=== PATIENT | female | born 1935 | race Caucasian/White ===

== ENCOUNTER 2016-05-19 14:55 | Inpatient (IN) | payer OTHER ==
[~2016-05-19] VITALS: Ht 160 cm; Wt 70.0 kg
[~2016-05-19 14:55] MED LIST: ADVAIR 100/501 DISK IH; ASCORBIC ACID500 M3 PO; ASPIRIN81 M1 PO; BUMETANIDE0.5 M1 PO; CITRACAL + D C1 EACH PO; CLONIDINE HCL0.2 MG PO; COLACE100 MG PO; COMPAZINE10 MG PO; COUMADIN2.5 MG PO; COUMADIN4 MG PO; DIOVAN320 MG PO; FEOSOL325 MG PO; FOLIC ACID0.4 MG PO; FOLIC ACID0.8 MG PO; HYDROCHLOROTHIA25 MG PO; HYDROCODON-ACE1 EAC7 PO; ISOSORBIDE DINIT5 MG PO; LO-DOSE ASPIRIN81 M1 PO; METHOTREXATE2.5 MG PO; METOPROLOL SUCC50 MG PO; METOPROLOL TART50 MG PO; NITROQUICK0.4 MG SL; PERCOCET 5/31 TABLET PO; PREDNISONE10 MG PO; PREDNISONE20 MG PO; PROAIR HFA8.5 GM IH; ROBITUSSIN DM118 ML PO; SENNA-TIME S T1 EACH PO; SIMVASTATIN40 M1 PO; SIMVASTATIN40 MG PO; SINGULAIR10 MG PO; SODIUM CHLORIDE1 G1 PO; SPIRIVA1 INHALATI IH; SYMBICORT60 INHALAT IH; TYLENOL EXTRA500 MG PO; ULTRACET1 TABLET PO; VALTREX1000 MG PO; VALTURNA 300-31 EACH PO; VITAMIN B-6100 MG PO; VITAMIN B6100 MG PO; VITAMIN C1000 M3 PO; VITAMIN D3400 UNI2 PO; VITAMIN D400 UNIT PO; VITAMIN D50000 UNI1 PO
[2016-05-19 15:34] LABS: BICARBONATE 11.4 mEq/L (22-26); CARBOXY HGB 1.7 % (0-5); METHEMOGLOBIN 0.7 % (0-1.5); PCO2 43 mm Hg (35-45); PO2 353 mm Hg (80-100)
[2016-05-19 15:35] LABS: COMMENTS - BLOOD GASES C+; DEVICE VENT; FI02 100 %; MECHANICAL RATE 12 resp/min; MODE A/C; PEEP 5 CM/H20; SITE RB; TIDAL VOLUME 400 ML; TOTAL RESP RATE 20 resp/min; pH 7.03 (7.35-7.45)
[2016-05-19 15:40] LABS: HEMATOCRIT 41.7 % (36.0-46.0); MCH 33.3 PG (29.0-34.0); MCHC 34.5 G/DL (30.0-36.0); MCV 96.3 FL (83-99); MEAN PLAT.VOLUME 9.4 uM^3 (9.5-12.4); PLATELET COUNT 186 K/uL (156-360); RBC DIS.WIDTH-CV 12.9 % (11.8-14.6); RBC DIS.WIDTH-SD 43.8 % (39-53); RED BLOOD COUNT 4.33 M/uL (3.80-5.20); WHITE BLOOD COUNT 5.8 K/uL (4.1-10.2)
[2016-05-19 16:15] LABS: HEMATOLOGY COMMENT 1 SMEAR COMPATIBLE; PLAT.SUFFICIENCY ADEQUATE; USER ID SS
[2016-05-19 16:16] LABS: EOSINOPHIL (%) 0.7 % (0-5); IMMATURE GRANULOCYTE (%) 0.3 % (0.0-0.7); IMMATURE GRANULOCYTE COUNT 0.2 K/uL; LYMPHOCYTE COUNT 0.9 K/uL (1.0-2.8); MONOCYTE (%) 3.3 % (3-12); MONOCYTE COUNT 0.2 K/uL (0-0.8); NEUTROPHIL (%) 80.6 % (45-76); NEUTROPHIL COUNT 4.7 K/uL (1.8-6.4)
[2016-05-19 16:29] LABS: INTER. NORMALIZED RATIO 1.4; PROTHROMBIN TIME 14.2 (9.2-11.2); PTT 39.8 (25-32)
[2016-05-19 16:33] LABS: CHLORIDE 96 mEq/L (99-109); POTASSIUM 3.9 mEq/L (3.7-5.4); SODIUM 127 mEq/L (136-147)
[2016-05-19 16:35] LABS: GLUCOSE 67 mg/dL (70-99)
[2016-05-19 16:36] LABS: ANION GAP 18 MEQ/L (2-14)
[2016-05-19 16:37] LABS: TOTAL BILIRUBIN 0.6 mg/dL (0.0-1.0)
[2016-05-19 16:39] LABS: ALKALINE PHOSPHATASE 50 IU/L (3-129); GFR ESTIMATE (CALCULATED) 24 mL/min/
[2016-05-19 16:40] LABS: UREA NITROGEN (BUN) 28 mg/dL (9-23)
[2016-05-19 16:42] LABS: CREATINE KINASE 881 IU/L (1-294); LIPASE 7 U/L (1.0-51.0)
[2016-05-19 16:48] LABS: TROP-I INTERPRETATION POSITIVE
[2016-05-19 16:50] LABS: TROPONIN-I 2.45 ng/mL (0.0-0.30)
[2016-05-19] MEDS ORDERED: PROAIR HFA8.5 GM IH (17:09)
[2016-05-19] MEDS ORDERED: BREO ELLIPTA I1 EACH IH (17:13)
[2016-05-19] MEDS ORDERED: WARFARIN SODIU2.5 MG PO (17:14)
[2016-05-19 18:30] VITALS: BP 121/99
[2016-05-19 19:00] VITALS: BP 114/61
[2016-05-19 19:45] LABS: METH RESISTANT S AUREUS PCR NEGATIVE (NEGATIVE)
[2016-05-19 19:48] LABS: PROBE CHECK PASS; SPECIMEN PROCESSING CONTROL PASS
[2016-05-19 20:43] LABS: BASE EXCESS -1.7 mEq/L (-3 to +3); BICARBONATE 25.7 mEq/L (22-26); CARBOXY HGB 0.8 % (0-5); COMMENTS - BLOOD GASES C+; PCO2 56 mm Hg (35-45); PO2 301 mm Hg (80-100); SITE A LINE
[2016-05-19 20:44] LABS: DEVICE VENTILATOR; FI02 100 %; MECHANICAL RATE 12 resp/min; MODE AC; PEEP 5 CM/H20; TIDAL VOLUME 400 ML; TOTAL RESP RATE 19 resp/min; pH 7.27 (7.35-7.45)
[2016-05-19 21:00] VITALS: BP 103/65
[2016-05-19 21:19] LABS: INTER. NORMALIZED RATIO 1.5; PROTHROMBIN TIME 15.4 (9.2-11.2)
[2016-05-19 21:44] LABS: TROP-I INTERPRETATION POSITIVE
[2016-05-19 21:50] LABS: TROPONIN-I 2.59 ng/mL (0.0-0.30)
[2016-05-19 21:51] LABS: ANION GAP 10 MEQ/L (2-14); CHLORIDE 106 MEQ/L (99-109); GFR ESTIMATE (CALCULATED) 39 mL/min/; GLUCOSE 100 mg/dL (70-99); MAGNESIUM 1.4 mg/dl (1.3-2.7); POTASSIUM 2.9 MEQ/L (3.7-5.4); SAMPLE HEMOLYSIS CHECK 0; SAMPLE ICTERIC CHECK 0; SAMPLE LIPEMIA CHECK 0; SODIUM 142 MEQ/L (136-147); UREA NITROGEN (BUN) 25 mg/dL (9-23)
[2016-05-19 22:00] VITALS: BP 86/68
[2016-05-19 23:00] VITALS: BP 77/63
[2016-05-19 23:57] LABS: HEMATOLOGY COMMENT 1 REV; PLAT.SUFFICIENCY DECREASED; USER ID SLU
[2016-05-20] VITALS (21 sets, daily range): BP systolic 78–147; BP diastolic 52–97
[2016-05-20] LABS: EOSINOPHIL (%) 0 % (0-5); HEMATOCRIT 36.3 % (36.0-46.0); IMMATURE GRANULOCYTE (%) 0.8 % (0.0-0.7); LYMPHOCYTE COUNT 0.2 K/uL (1.0-2.8); MCH 31.8 PG (29.0-34.0); MCHC 33.6 G/DL (30.0-36.0); MCV 94.5 FL (83-99); MEAN PLAT.VOLUME 9.1 uM^3 (9.5-12.4); MONOCYTE (%) 2.3 % (3-12); NEUTROPHIL COUNT 1.1 K/uL (1.8-6.4); RBC DIS.WIDTH-SD 44.4 % (39-53); RED BLOOD COUNT 3.84 M/uL (3.80-5.20)
[2016-05-20 00:36] LABS: PLATELET COUNT 111 K/uL (156-360); WHITE BLOOD COUNT 1.3 K/uL (4.1-10.2)
[2016-05-20 00:46] LABS: POTASSIUM 2.9 mEq/L (3.7-5.4); SODIUM 142 mEq/L (136-147)
[2016-05-20 00:48] LABS: GLUCOSE 113 mg/dL (70-99)
[2016-05-20 00:49] LABS: CHLORIDE 109 mEq/L (99-109)
[2016-05-20 00:50] LABS: ANION GAP 13 MEQ/L (2-14)
[2016-05-20 00:52] LABS: GFR ESTIMATE (CALCULATED) 33 mL/min/
[2016-05-20 00:53] LABS: UREA NITROGEN (BUN) 28 mg/dL (9-23)
[2016-05-20 01:35] LABS: INTER. NORMALIZED RATIO 1.4; PROTHROMBIN TIME 14.7 (9.2-11.2)
[2016-05-20 03:17] LABS: BASE EXCESS -7.4 mEq/L (-3 to +3); BICARBONATE 19.7 mEq/L (22-26); CARBOXY HGB 1.8 % (0-5); COMMENTS - BLOOD GASES C+; DEVICE VENTILATOR; FI02 50 %; METHEMOGLOBIN 1.1 % (0-1.5); PCO2 45 mm Hg (35-45); PO2 59 mm Hg (80-100); SITE A LINE
[2016-05-20 03:18] LABS: MECHANICAL RATE 16 resp/min; MODE A/C; PEEP 5 CM/H20; TIDAL VOLUME 450 ML; TOTAL RESP RATE 19 resp/min; pH 7.25 (7.35-7.45)
[2016-05-20 03:44] LABS: EOSINOPHIL (%) 1.3 % (0-5); HEMATOCRIT 37.2 % (36.0-46.0); LYMPHOCYTE COUNT 0.1 K/uL (1.0-2.8); MCH 32.5 PG (29.0-34.0); MCHC 34.1 G/DL (30.0-36.0); MCV 95.1 FL (83-99); MEAN PLAT.VOLUME 9.1 uM^3 (9.5-12.4); MONOCYTE (%) 3.2 % (3-12); MONOCYTE COUNT 0.1 K/uL (0-0.8); NEUTROPHIL (%) 86.5 % (45-76); NEUTROPHIL COUNT 1.3 K/uL (1.8-6.4); PLATELET COUNT 109 K/uL (156-360); RBC DIS.WIDTH-CV 12.7 % (11.8-14.6); RBC DIS.WIDTH-SD 42.6 % (39-53); RED BLOOD COUNT 3.91 M/uL (3.80-5.20)
[2016-05-20 03:45] LABS: WHITE BLOOD COUNT 1.6 K/uL (4.1-10.2)
[2016-05-20 03:46] LABS: INTER. NORMALIZED RATIO 1.6; PROTHROMBIN TIME 16.7 (9.2-11.2)
[2016-05-20 03:47] LABS: CHLORIDE 109 mEq/L (99-109); POTASSIUM 3.4 mEq/L (3.7-5.4); SODIUM 141 mEq/L (136-147)
[2016-05-20 03:48] LABS: MAGNESIUM 1.3 mg/dL (1.3-2.7)
[2016-05-20 03:49] LABS: GLUCOSE 93 mg/dL (70-99)
[2016-05-20 03:50] LABS: ANION GAP 13 MEQ/L (2-14)
[2016-05-20 03:53] LABS: GFR ESTIMATE (CALCULATED) 33 mL/min/
[2016-05-20 03:54] LABS: UREA NITROGEN (BUN) 29 mg/dL (9-23)
[2016-05-20 03:59] LABS: TROP-I INTERPRETATION POSITIVE
[2016-05-20 04:05] LABS: TROPONIN-I 2.44 ng/mL (0.0-0.30)
[2016-05-20 07:36] LABS: INTER. NORMALIZED RATIO 1.8; PROTHROMBIN TIME 19.1 (9.2-11.2)
[2016-05-20 08:20] LABS: PTT > 150.0 (25-32)
[2016-05-20 08:57] LABS: BASE EXCESS -12.4 mEq/L (-3 to +3); BICARBONATE 17.4 mEq/L (22-26); CARBOXY HGB 1.2 % (0-5); METHEMOGLOBIN 1.5 % (0-1.5); PO2 70 mm Hg (80-100)
[2016-05-20 08:58] LABS: COMMENTS - BLOOD GASES C+ANA; DEVICE 840 PB; FI02 60 %; MECHANICAL RATE 16 resp/min; MODE AC; PCO2 56 mm Hg (35-45); PEEP 5 CM/H20; SITE ALINE; TIDAL VOLUME 450 ML; TOTAL RESP RATE 16 resp/min
[2016-05-20 09:38] LABS: HEMATOCRIT 36.4 % (36.0-46.0); MCH 32.9 PG (29.0-34.0); MCHC 34.1 G/DL (30.0-36.0); MCV 96.6 FL (83-99); MEAN PLAT.VOLUME 9.9 uM^3 (9.5-12.4); PLATELET COUNT 103 K/uL (156-360); RBC DIS.WIDTH-CV 13.3 % (11.8-14.6); RBC DIS.WIDTH-SD 46.3 % (39-53); RED BLOOD COUNT 3.77 M/uL (3.80-5.20)
[2016-05-20 09:48] LABS: INTER. NORMALIZED RATIO 1.9; PROTHROMBIN TIME 20.1 (9.2-11.2)
[2016-05-20 09:55] LABS: TROP-I INTERPRETATION POSITIVE
[2016-05-20 09:58] LABS: TROPONIN-I 2.73 ng/mL (0.0-0.30)
[2016-05-20 10:50] LABS: BASE EXCESS -5.7 mEq/L (-3 to +3); BICARBONATE 21.1 mEq/L (22-26); CARBOXY HGB 0.8 % (0-5); COMMENTS - BLOOD GASES C+ANA; DEVICE 980 PB; METHEMOGLOBIN 1.6 % (0-1.5); PCO2 46 mm Hg (35-45); PO2 69 mm Hg (80-100); SITE ALINE; pH 7.27 (7.35-7.45)
[2016-05-20 10:51] LABS: FI02 60 %; MECHANICAL RATE 20 resp/min; MODE AC; PEEP 5 CM/H20; TIDAL VOLUME 450 ML; TOTAL RESP RATE 20 resp/min
[2016-05-20 11:51] LABS: ANION GAP 15 MEQ/L (2-14); CHLORIDE 111 MEQ/L (99-109); GFR ESTIMATE (CALCULATED) 33 mL/min/; GLUCOSE 62 mg/dL (70-99); MAGNESIUM 1.6 mg/dl (1.3-2.7); POTASSIUM 4.6 MEQ/L (3.7-5.4); SAMPLE HEMOLYSIS CHECK 0; SAMPLE ICTERIC CHECK 0; SAMPLE LIPEMIA CHECK 0; SODIUM 142 MEQ/L (136-147); UREA NITROGEN (BUN) 30 mg/dL (9-23); VANCOMYCIN, TROUGH 7.8 MCG/ML (10-20)
[2016-05-20 12:15] LABS: ABS NEUTROPHIL COUNT 2.07; EOSINOPHIL ABS CT 0.09; EOSINOPHIL COUNT 0.1 K/uL (0-0.3); IMMATURE GRANULOCYTE (%) 12.8 % (0.0-0.7); IMMATURE GRANULOCYTE COUNT 0.4 K/uL; LYMPHOCYTE COUNT 0.2 K/uL (1.0-2.8); MONOCYTE (%) 0.3 % (3-12); NEUTROPHIL (%) 78.9 % (45-76); NEUTROPHIL COUNT 2.3 K/uL (1.8-6.4); PLAT.SUFFICIENCY DECREASED; USER ID STC
[2016-05-20 15:06] LABS: HEMATOCRIT 31.7 % (36.0-46.0); MCH 32.7 PG (29.0-34.0); MCHC 34.4 G/DL (30.0-36.0); MCV 95.2 FL (83-99); MEAN PLAT.VOLUME 10.3 uM^3 (9.5-12.4); PLATELET COUNT 77 K/uL (156-360); RBC DIS.WIDTH-CV 13.3 % (11.8-14.6); RBC DIS.WIDTH-SD 46.4 % (39-53); RED BLOOD COUNT 3.33 M/uL (3.80-5.20); WHITE BLOOD COUNT 2.8 K/uL (4.1-10.2)
[2016-05-20 15:23] LABS: PROTHROMBIN TIME 20.6 (9.2-11.2)
[2016-05-20 15:30] LABS: ANION GAP 16 MEQ/L (2-14); CHLORIDE 109 MEQ/L (99-109); MAGNESIUM 1.6 mg/dl (1.3-2.7); POTASSIUM 3.7 MEQ/L (3.7-5.4); SAMPLE HEMOLYSIS CHECK 0; SAMPLE ICTERIC CHECK 0; SAMPLE LIPEMIA CHECK 0; SODIUM 146 MEQ/L (136-147)
[2016-05-20 15:36] LABS: GFR ESTIMATE (CALCULATED) 31 mL/min/; GLUCOSE 46 mg/dL (70-99); UREA NITROGEN (BUN) 29 mg/dL (9-23)
[2016-05-20 15:39] LABS: TROP-I INTERPRETATION POSITIVE
[2016-05-20 15:40] LABS: PTT > 150.0 (25-32)
[2016-05-20 15:41] LABS: TROPONIN-I 2.78 ng/mL (0.0-0.30)
[2016-05-20 17:25] LABS: BASE EXCESS -4.9 mEq/L (-3 to +3); BICARBONATE 21.6 mEq/L (22-26); CARBOXY HGB 1.1 % (0-5); METHEMOGLOBIN 1.8 % (0-1.5); PCO2 45 mm Hg (35-45); PO2 67 mm Hg (80-100)
[2016-05-20 17:26] LABS: COMMENTS - BLOOD GASES C+ANA; DEVICE PB 890; FI02 60 %; MECHANICAL RATE 20 resp/min; MODE AC; PEEP 5 CM/H20; SITE ALINE; TIDAL VOLUME 450 ML; TOTAL RESP RATE 20 resp/min; pH 7.29 (7.35-7.45)
[2016-05-20 18:23] LABS: ABS NEUTROPHIL COUNT 2.24; BURR CELLS 1+; DELETE MACHINE DIFF? YES; PLAT.SUFFICIENCY DECREASED; USER ID SS
[2016-05-20 21:17] LABS: ANION GAP 16 MEQ/L (2-14); CHLORIDE 107 MEQ/L (99-109); POTASSIUM 3.7 MEQ/L (3.7-5.4); SAMPLE HEMOLYSIS CHECK 0; SAMPLE ICTERIC CHECK 0; SAMPLE LIPEMIA CHECK 0; SODIUM 145 MEQ/L (136-147)
[2016-05-20 21:18] LABS: MAGNESIUM 2.1 mg/dl (1.3-2.7)
[2016-05-20 21:23] LABS: GFR ESTIMATE (CALCULATED) 29 mL/min/; UREA NITROGEN (BUN) 31 mg/dL (9-23)
[2016-05-20 21:26] LABS: TROP-I INTERPRETATION POSITIVE
[2016-05-20 21:27] LABS: INTER. NORMALIZED RATIO 1.9; PROTHROMBIN TIME 19.3 (9.2-11.2)
[2016-05-20 21:29] LABS: GLUCOSE 93 mg/dL (70-99)
[2016-05-20 21:30] LABS: TROPONIN-I 2.48 ng/mL (0.0-0.30)
[2016-05-20 21:52] LABS: ANISOCYTOSIS OCC; EOSINOPHIL (%) 3.5 % (0-5); EOSINOPHIL COUNT 0.2 K/uL (0-0.3); HEMATOCRIT 31.9 % (36.0-46.0); IMMATURE GRANULOCYTE (%) 12.9 % (0.0-0.7); IMMATURE GRANULOCYTE COUNT 0.7 K/uL; LYMPHOCYTE COUNT 0.1 K/uL (1.0-2.8); MCH 32.5 PG (29.0-34.0); MCHC 34.5 G/DL (30.0-36.0); MCV 94.4 FL (83-99); MEAN PLAT.VOLUME 10.3 uM^3 (9.5-12.4); MONOCYTE (%) 0.9 % (3-12); MONOCYTE COUNT 0.1 K/uL (0-0.8); NEUTROPHIL (%) 80.6 % (45-76); NEUTROPHIL COUNT 4.4 K/uL (1.8-6.4); PLAT.SUFFICIENCY DECREASED; PLATELET COUNT 75 K/uL (156-360); POLYCHROMASIA FEW; RBC DIS.WIDTH-CV 13.1 % (11.8-14.6); RBC DIS.WIDTH-SD 45.1 % (39-53); RED BLOOD COUNT 3.38 M/uL (3.80-5.20); SCHISTOCYTES RARE; SMUDGE CELLS 0; USER ID WCD; WHITE BLOOD COUNT 5.4 K/uL (4.1-10.2)
[2016-05-21] VITALS (12 sets, daily range): BP systolic 73–136; BP diastolic 36–59
[2016-05-21 03:24] LABS: POINT-OF-CARE METER ID UU13113803; POINT-OF-CARE USER ID PHATLC
[2016-05-21 03:30] LABS: HEMATOCRIT 32.1 % (36.0-46.0); MCH 32.5 PG (29.0-34.0); MCHC 33.6 G/DL (30.0-36.0); MCV 96.7 FL (83-99); PLATELET COUNT 80 K/uL (156-360); RBC DIS.WIDTH-CV 13.4 % (11.8-14.6); RBC DIS.WIDTH-SD 44.3 % (39-53); RED BLOOD COUNT 3.32 M/uL (3.80-5.20)
[2016-05-21 03:33] LABS: CHLORIDE 105 mEq/L (99-109); POTASSIUM 3.6 mEq/L (3.7-5.4); SODIUM 144 mEq/L (136-147)
[2016-05-21 03:36] LABS: GLUCOSE 171 mg/dL (70-99); MAGNESIUM 1.8 mg/dL (1.3-2.7)
[2016-05-21 03:37] LABS: ANION GAP 19 MEQ/L (2-14)
[2016-05-21 03:39] LABS: GFR ESTIMATE (CALCULATED) 24 mL/min/; TROP-I INTERPRETATION POSITIVE
[2016-05-21 03:40] LABS: TROPONIN-I 2.26 ng/mL (0.0-0.30); UREA NITROGEN (BUN) 34 mg/dL (9-23)
[2016-05-21 03:44] LABS: WHITE BLOOD COUNT 9.9 K/uL (4.1-10.2)
[2016-05-21 04:12] LABS: INTER. NORMALIZED RATIO 1.7; PROTHROMBIN TIME 17.2 (9.2-11.2)
[2016-05-21 06:10] LABS: POINT-OF-CARE METER ID UU13113803; POINT-OF-CARE USER ID PHATLC
[2016-05-21 07:10] LABS: EOSINOPHIL (%) 2.4 % (0-5); EOSINOPHIL COUNT 0.2 K/uL (0-0.3); IMMATURE GRANULOCYTE (%) 8.2 % (0.0-0.7); IMMATURE GRANULOCYTE COUNT 8.1 K/uL; LYMPHOCYTE COUNT 0.1 K/uL (1.0-2.8); MONOCYTE (%) 0.1 % (3-12); NEUTROPHIL (%) 87.6 % (45-76); NEUTROPHIL COUNT 8.7 K/uL (1.8-6.4); PLAT.SUFFICIENCY DECREASED; SMUDGE CELLS 0; USER ID STC
[2016-05-21 07:53] LABS: POINT-OF-CARE METER ID UU13113803; POINT-OF-CARE USER ID PHATLC
[2016-05-21 08:53] LABS: INTER. NORMALIZED RATIO 1.5; PROTHROMBIN TIME 15.1 (9.2-11.2)
[2016-05-21 09:04] LABS: HEMATOCRIT 32.4 % (36.0-46.0); MCH 32.8 PG (29.0-34.0); MCHC 34.3 G/DL (30.0-36.0); MCV 95.9 FL (83-99); MEAN PLAT.VOLUME 11.2 uM^3 (9.5-12.4); PLATELET COUNT 71 K/uL (156-360); RBC DIS.WIDTH-CV 13.9 % (11.8-14.6); RBC DIS.WIDTH-SD 48.6 % (39-53); RED BLOOD COUNT 3.38 M/uL (3.80-5.20)
[2016-05-21 09:08] LABS: WHITE BLOOD COUNT 17.1 K/uL (4.1-10.2)
[2016-05-21 09:21] LABS: TROP-I INTERPRETATION POSITIVE
[2016-05-21 09:24] LABS: ANION GAP 21 MEQ/L (2-14); CHLORIDE 103 MEQ/L (99-109); GFR ESTIMATE (CALCULATED) 23 mL/min/; MAGNESIUM 1.9 mg/dl (1.3-2.7); POTASSIUM 3.9 MEQ/L (3.7-5.4); SAMPLE HEMOLYSIS CHECK 0; SAMPLE ICTERIC CHECK 0; SAMPLE LIPEMIA CHECK 0; SODIUM 146 MEQ/L (136-147); UREA NITROGEN (BUN) 35 mg/dL (9-23)
[2016-05-21 09:25] LABS: GLUCOSE 80 mg/dL (70-99)
[2016-05-21 09:26] LABS: TROPONIN-I 2.45 ng/mL (0.0-0.30)
[2016-05-21 11:34] LABS: DELETE MACHINE DIFF? YES
== END 2016-05-21 12:20 ==
LOC: EME 14:55 → 4WEST 17:25 → EDOF 17:25 → 4WEST 17:25
PROVIDERS: Emergency Medicine; Internal Medicine Critical Care Medicine; Internal Medicine Nephrology
PROC: 0BH17EZ Insertion of Endotracheal Airway into Trachea, Via Natural or Artificial Opening (ICD-10-PCS; principal; 2016-05-19)
PROC: 5A1945Z Respiratory Ventilation, 24-96 Consecutive Hours (ICD-10-PCS; principal; 2016-05-19)
PROC: 02HV33Z Insertion of Infusion Device into Superior Vena Cava, Percutaneous Approach (ICD-10-PCS; principal; 2016-05-19)
PROC: 04HY32Z Insertion of Monitoring Device into Lower Artery, Percutaneous Approach (ICD-10-PCS; principal; 2016-05-19)
DX: I21.4 Non-ST elevation (NSTEMI) myocardial infarction (principal); J96.01 Acute respiratory failure with hypoxia; I46.2 Cardiac arrest due to underlying cardiac condition; R57.9 Shock, unspecified; J69.0 Pneumonitis due to inhalation of food and vomit; G93.1 Anoxic brain damage, not elsewhere classified; N17.9 Acute kidney failure, unspecified; E87.2 Acidosis; R78.81 Bacteremia; I50.9 Heart failure, unspecified; I13.0 Hypertensive heart and chronic kidney disease with heart failure and stage 1 through stage 4 chronic kidney disease, or unspecified chronic kidney disease; M19.90 Unspecified osteoarthritis, unspecified site; J44.9 Chronic obstructive pulmonary disease, unspecified; E78.5 Hyperlipidemia, unspecified; M06.9 Rheumatoid arthritis, unspecified; Z85.3 Personal history of malignant neoplasm of breast; I70.1 Atherosclerosis of renal artery; E16.2 Hypoglycemia, unspecified; E87.1 Hypo-osmolality and hyponatremia; E83.51 Hypocalcemia; E77.8 Other disorders of glycoprotein metabolism; E88.09 Other disorders of plasma-protein metabolism, not elsewhere classified; M62.82 Rhabdomyolysis; Z95.5 Presence of coronary angioplasty implant and graft; I25.10 Atherosclerotic heart disease of native coronary artery without angina pectoris; Z87.891 Personal history of nicotine dependence; Z66 Do not resuscitate; N18.9 Chronic kidney disease, unspecified; I73.9 Peripheral vascular disease, unspecified; D69.6 Thrombocytopenia, unspecified; G25.3 Myoclonus; G40.89 Other seizures; Z51.5 Encounter for palliative care
CPT/HCPCS: 36600; 70450; 71010; 71275; 74177; 80048; 80048 91; 80053; 80202; 81003; 82330; 82550; 82803; 82948; 83605; 83690; 83735; 83880; 84100; 84443; 84484; 85025; 85025 91; 85610; 85730; 87040; 87070; 87077; 87147; 87186; 87205; 87641; 87801; 90832; 93005; 93306; 94002; 94003; 94640; 94640 76; 95819; 99202; 99281; 99285; C1894; J1720; J1953; J2060; J2543; J2704; J3370; J3475; J3480; J7030; J7040; J7050; J7070; J7120; P9045; S0028